=== PATIENT | male | born 1955 | race Caucasian/White ===

== ENCOUNTER 2023-10-21 18:42 | Emergency (ER) | payer MEDICARE ==
[~2023-10-21] VITALS: Ht 167.6 cm; Wt 96.2 kg
[2023-10-21 18:46] VITALS: TEMP 98.2
[2023-10-21] MEDS: SODIUM CHLORIDE 0.9% 1000ML 1,000 ML IV STA (19:05)
[2023-10-21] MEDS: KETOROLAC TROMETHAMINE 30 MG/ML VIAL IV STA (19:06)
[2023-10-21 19:11] LABS: BASOPHILS # (AUTO) 0.1 (0.0-0.1); BASOPHILS % 0.8 % (0.0-1.0); EOSINOPHILS # (AUTO) 0.3 (0.0-0.4); EOSINOPHILS % 2.5 % (0.0-6.0); HEMATOCRIT 46.4 % (38.2-49.6); HEMOGLOBIN 16.2 g/dL (14.0-18.0); LYMPHOCYTES # (AUTO) 2.3 (1.0-3.2); LYMPHOCYTES % 21.7 % (18.0-39.1); MEAN CORPUSCULAR HEMOGLOBIN 32.9 pg (28-32); MEAN CORPUSCULAR HGB CONC 34.9 g/dL (31-35); MEAN CORPUSCULAR VOLUME 94.3 fL (81-99); MONOCYTES # (AUTO) 0.7 (0.2-0.8); NEUTROPHILS % 67.7 % (38.7-80.0); PLATELET COUNT 216 x10e3/uL (140-360); RED BLOOD COUNT 4.92 x10e6/uL (4.3-5.7); WHITE BLOOD COUNT 10.37 x10e3/uL (4.8-10.8)
[2023-10-21 19:17] LABS: BILIRUBIN,URINE NEGATIVE (NEGATIVE); CLARITY,URINE CLEAR (CLEAR); COLOR,URINE YELLOW (YELLOW); GLUCOSE, URINE NEGATIVE (NEGATIVE); KETONES,URINE 1+ (NEGATIVE); LEUKOCYTE ESTERASE ,URINE NEGATIVE (NEGATIVE); NITRITE,URINE NEGATIVE (NEGATIVE); PH,URINE 5.5 (5 - 7); PROTEIN,URINE DIPSTICK NEGATIVE (NEGATIVE); URINE UROBILINOGEN 1 mg/dL (0.2 - 1)
[2023-10-21 19:30] LABS: ALBUMIN 4.2 g/dL (3.5-5.0); ALBUMIN/GLOBULIN RATIO 1.6 (0.8-2.0); ANION GAP 13.1 mmol/L (8-16); BILIRUBIN,TOTAL 0.9 mg/dL (0.2-1.2); CALCIUM 9.6 mg/dL (8.4-10.2); CREATININE, SERUM 0.8 mg/dL (0.72-1.25); POTASSIUM 4.1 mmol/L (3.5-5.1); TOTAL PROTEIN 6.9 g/dL (6.5-8.1)
[2023-10-21 19:31] LABS: AMORPHOUS SEDIMENT,URINE FEW (FEW); BACTERIA,URINE MODERATE /HPF; EPITHELIAL CELLS,URINE FEW /LPF; MUCUS,URINE MODERATE (RARE); WBC,URINE (MAN) 21-50 /HPF (0-5)
[2023-10-21 19:32] LABS: CALCIUM OXALATE CRYSTALS,UR MODERATE (FEW)
[2023-10-21] MEDS: ONDANSETRON HCL INJ 2MG/ML 2ML 2 MG/ML VIAL IV STA (20:27)
[2023-10-21] MEDS: Morphine 4mg INJECTION 4 MG/ML INJ IV STA (20:28)
[2023-10-21] MEDS ORDERED: Morphine 4mg INJECTION 4 MG/ML INJ ONE (20:29)
[2023-10-21] MEDS ORDERED: KETOROLAC TROME10 MG PO (22:11)
[2023-10-21] MEDS ORDERED: ULTRAM 50MG50 MG PO (22:11)
[2023-10-21 22:25] VITALS: PULSE 75; RESP 16; O2SAT 96
== END 2023-10-21 22:26 | disposition home or self-care (01) ==
LOC: ER 18:50
DX: R10.30 Lower abdominal pain, unspecified (principal); M54.50 Low back pain, unspecified; E78.5 Hyperlipidemia, unspecified; K40.20 Bilateral inguinal hernia, without obstruction or gangrene, not specified as recurrent
CPT/HCPCS: 36415; 74176; 80053; 81001; 83690; 85025; 99284; J1885; J2270; J2405; J7030